=== PATIENT | female | born 1960 | race Caucasian/White ===

== ENCOUNTER 2016-07-22 10:43 | Emergency (ER) | payer OTHER ==
--- NOTE | 2016-07-22 11:02 | UCPHY ---
H & P Patient Type: Established Time Seen by Provider: 07/22/16 10:50 HPI/ROS: This patient reports a 4 day history of left-sided chest pain that is described as achy and sharp. The pain is nonradiating. It came on gradually. There are no clear exacerbating or alleviating factors. Peak intensity 3/10. Currently minimal discomfort. She notes associated dyspnea which she states is mild. She thinks this may be from a mild reactive airway disease that she reports seasonal dyspnea at this time the ear. She has inhaler in the past but does not use 1 currently. She has been weight lifting recently wonders if it may be related to that. She does not recall having this pain before. ROS: No fevers or chills no other constitutional symptoms. HEENT: No recent URI symptoms. Pulmonary- No coughing. No shortness of breath. No pleuritic pain. Cardiovascular: No heart palpitations. No lower extremity swelling.. GI : No belly pain. No nausea or vomiting. Endocrine: diaphoresis. 10 point ROS is otherwise negative. Source: Patient Exam Limitations: No limitations - Medical/Surgical History PMH: She reports normal cholesterol level. Hx Asthma: No Hx Chronic Respiratory Disease: No Hx Diabetes: No Hx Cardiac Disease: No Hx Renal Disease: No Hx Cirrhosis: No Hx Alcoholism: No Hx HIV/AIDS: No Hx Splenectomy or Spleen Trauma: No Other PMH: DEPRESSION/L ANKLE FX, fibroid surg, c/s, hand surg - Family History Significant Family History: No pertinent family hx, Other (No family history of premature coronary artery disease, PE or DVT) - Social History Smoking Status: Never smoked Alcohol Use: Occasionally Drug Use: None Additional Social History: The patient returned from a vacation in [place] the airplane on July 10. - Physical Exam Exam: General Appearance: Alert, no distress. Eyes: Pupils equal and round no pallor or injection. ENT, Mouth: Mucous membranes moist. Respiratory: There are no retractions, lungs are clear to auscultation. Cardiovascular: Regular rate and rhythm. Gastrointestinal: Abdomen is soft and nontender, no masses, bowel sounds normal. Neurological: Alert with no focal deficits Skin: Warm and dry, no rashes. Musculoskeletal: Neck is supple nontender. Extremities are symmetrical, full range of motion. Psychiatric: Mood and affect are normal DIFFERENTIAL DIAGNOSIS: After history and physical exam differential diagnosis was considered for musculoskeletal chest wall pain, coronary syndrome, [place], pneumonia, pneumothorax, PE Constitutional: Initial Vital Signs Heart Rate 68 07/22/16 10:50 Respiratory Rate 16 07/22/16 10:50 Blood Pressure 125/78 H 07/22/16 10:50 O2 Sat (%) 97 07/22/16 10:50 O2 Delivery Mode Room Air Allergies/Adverse Reactions: Sulfa (Sulfonamide Antibiotics) Allergy (Verified 07/22/16 10:59) Home Medications: Medication Instructions Recorded NEFTALY 07/22/16 Medical Decision Making - Diagnostics EKG Interpretation: 12 lead EKG performed shortly after arrival Sinus rhythm at a rate of 62 Intervals: Normal [place]: Normal Normal ST segments throughout. Overall assessment: Normal EKG Imaging: Chest x-ray: Mild scoliosis. Otherwise negative by my interpretation. I compared this to previous chest x-ray. ED Course/Re-evaluation: Aspirin p.o. Patient has negative D-dimer, normal troponin normal CBC and chemistries. After workup, find no evidence of concerning cardio pulmonary pathology. I counseled her regarding this. I suspect that she does have musculoskeletal source for her chest pain. However, I recommended that she follow up with Cardiology for further evaluation if she has any ongoing symptoms. She is given appropriate precautions-reasons to go to the emergency department if needed - Data Points Laboratory Results: Laboratory Results 07/22/16 11:15 07/22/16 11:15 07/22/16 07/22/16 07/22/16 11:15 11:15 11:15 WBC 4.77 10^3/uL 10^3/uL (3.80-9.50) RBC 4.49 10^6/uL 10^6/uL (4.18-5.33) Hgb 14.0 g/dL g/dL (12.6-16.3) Hct 41.8 % % (38.0-47.0) MCV 93.1 fL fL (81.5-99.8) MCH 31.2 pg pg (27.9-34.1) MCHC 33.5 g/dL g/dL (32.4-36.7) RDW 11.8 % % (11.5-15.2) Plt Count 222 10^3/uL 10^3/uL (150-400) MPV 10.0 fL fL (8.7-11.7) Neut % (Auto) 44.2 % % (39.3-74.2) Lymph % (Auto) 43.2 % % (15.0-45.0) [place] % (Auto) 7.3 % % (4.5-13.0) Eos % (Auto) 3.8 % % (0.6-7.6) Baso % (Auto) 1.3 % % (0.3-1.7) Nucleat RBC Rel Count 0.0 % % (0.0-0.2) Absolute Neuts (auto) 2.11 10^3/uL 10^3/uL (1.70-6.50) Absolute Lymphs (auto) 2.06 10^3/uL 10^3/uL (1.00-3.00) Absolute Monos (auto) 0.35 10^3/uL 10^3/uL (0.30-0.80) Absolute Eos (auto) 0.18 10^3/uL 10^3/uL (0.03-0.40) Absolute Basos (auto) 0.06 10^3/uL 10^3/uL (0.02-0.10) Absolute Nucleated RBC 0.00 10^3/uL 10^3/uL (0-0.01) Immature Gran % 0.2 % % (0.0-1.1) Immature Gran # 0.01 10^3/uL 10^3/uL (0.00-0.10) D-Dimer < 0.27 ug/mLFEU ug/mLFEU (0.00-0.50) Sodium 140 mEq/L mEq/L (134-144) Potassium 4.1 mEq/L mEq/L (3.5-5.2) Chloride 102 mEq/L mEq/L (97-110) Carbon Dioxide 27 mEq/l mEq/l (22-31) Anion Gap 11 mEq/L mEq/L (8-16) BUN 16 mg/dL mg/dL (7-23) Creatinine 0.7 mg/dL mg/dL (0.6-1.0) Estimated GFR > 60 Glucose 82 mg/dL mg/dL (70-100) Calcium 9.3 mg/dL mg/dL (8.5-10.4) Troponin I < 0.012 ng/mL ng/mL (0-0.034) Medications Given: Discontinued Medications Aspirin (Aspirin) 324 mg PO EDNOW ONE Stop: 07/22/16 11:04 Last Admin: 07/22/16 11:22 Dose: Not Given Aspirin (Aspirin) 324 mg PO EDNOW ONE Stop: 07/22/16 11:04 Last Admin: 07/22/16 11:05 Dose: 324 mg Departure - Departure Disposition: Home, Routine, Self-Care Condition: Good Instructions: Chest Pain (ED) Additional Instructions: Diagnosis: Chest pain Plan: Ibuprofen and or Aleve and Tylenol as needed for discomfort Your symptoms should resolve over the next 5 days or so if this is musculoskeletal source of pain. Follow up with Cardiology for further evaluation for any ongoing symptoms Go to the emergency department for any significant worsening despite the treatment plan Referrals: NONE *PRIMARY CARE P,. [Primary Care Provider] - As per Instructions Patrice Farley MD [Medical Doctor] - As per Instructions - PQRS PQRS Measurement: NA
[2016-07-22 11:03] VITALS: RESP 16
[2016-07-22] MEDS ORDERED: ASPIRIN 81 MG CHEWABLE TAB PO ONE ×2 (11:03)
--- NOTE | 2016-07-22 11:07 | CPEKG ---
Heart Rate: 62 RR Interval: 968 P-R Interval: 152 QRSD Interval: 78 QT Interval: 408 QTC Interval: 415 P [place]: 79 QRS [place]: 54 T Wave [place]: 55 EKG Severity - NORMAL ECG - EKG Impression: SINUS RHYTHM Electronically Signed By: Alli Ma 23-Jul-2016 12:07:12
[2016-07-22 11:26] LABS: % IMMATURE GRANULYOCYTES 0.2 % (0.0-1.1); ABSOLUTE IMMATURE GRANULOCYTES 0.01 10^3/uL (0.00-0.10); ADD DIFF? NO; ADD MORPH? NO; ADD SCAN? NO; ATYPICAL LYMPHOCYTE FLAG 20 (0-99); FRAGMENT RBC FLAG 0 (0-99); HEMATOCRIT 41.8 % (38.0-47.0); LEFT SHIFT FLG 0 (0-99); LIPEMIA HEMOLYSIS FLAG 80 (0-99); MEAN CELL HEMOGLOBIN 31.2 pg (27.9-34.1); MEAN CELL HEMOGLOBIN CONCENTR. 33.5 g/dL (32.4-36.7); MEAN CELL VOLUME 93.1 fL (81.5-99.8); PLATELET CLUMPS FLAG 10 (0-99); PLATELET COUNT 222 10^3/uL (150-400); RED BLOOD CELL COUNT 4.49 10^6/uL (4.18-5.33); RED CELL DISTRIBUTION WIDTH 11.8 % (11.5-15.2)
[2016-07-22 11:40] LABS: ANION GAP 11 mEq/L (8-16); CALCIUM 9.3 mg/dL (8.5-10.4); CARBON DIOXIDE 27 mEq/l (22-31); CHLORIDE 102 mEq/L (97-110); CREATININE 0.7 mg/dL (0.6-1.0); GLOMERULAR FILTRATION RATE > 60; GLUCOSE 82 mg/dL (70-100); POTASSIUM 4.1 mEq/L (3.5-5.2); SODIUM 140 mEq/L (134-144)
[2016-07-22 11:49] LABS: TROPONIN I < 0.012 ng/mL (0-0.034)
[2016-07-22 12:21] VITALS: BP 111/82; PULSE 78; O2SAT 96
== END 2016-07-22 12:21 | disposition home or self-care (01) ==
LOC: CED 10:43
DX: R07.9 Chest pain, unspecified (principal); Z88.2 Allergy status to sulfonamides
CPT/HCPCS: 71020-PO; 80048-PO; 84484-PO; 85025-PO; 85378-PO; 93010-PO; 99215-PO; G0463-PO